=== PATIENT | female | born 1985 | race Caucasian/White ===

== ENCOUNTER 2021-03-24 08:10 | Emergency (ER) | payer OTHER ==
[~2021-03-24 08:10] MED LIST: ATARAX25 MG PO; MEDROL 4MG DOSEP4 MG PO
[2021-03-24] MEDS ORDERED: ULTRAM50 MG PO (09:52)
== END 2021-03-24 10:23 | disposition home or self-care (01) ==
LOC: FER 08:10
DX: T63.461A Toxic effect of venom of wasps, accidental (unintentional), initial encounter (principal)
CPT/HCPCS: J1200